=== PATIENT | male | born 1980 | race Caucasian/White ===

== ENCOUNTER 2017-05-15 15:37 | Emergency (ER) | payer BC ==
[2017-05-15] MEDS ORDERED: chlordiazePOXIDE 25 MG Cap PO ONE (16:46)
--- NOTE | 2017-05-15 16:53 | EDM.PDOCBH ---
ED HPI GENERAL MEDICAL PROBLEM - General Chief Complaint: Drug or Alcohol Abuse Stated Complaint: DETOX Time Seen by Provider: 05/15/17 16:23 Source of Information: Reports: Patient History Limitations: Reports: No Limitations - History of Present Illness INITIAL COMMENTS - FREE TEXT/NARRATIVE: Patient was evaluated by Everardo Gonzales earlier this morning for alcohol detox. Patient is feeling shaky and anxious. He can't sleep at night. I did speak to Everardo Gonzales personally and would like the patient evaluated in the ED to be prescribed something for the alcohol withdrawal symptoms and also help him sleep at night. Patient is a long-time alcoholic and has undergone alcohol treatment on 3 different occasions. States as of recent he drinks a few beers couple times a week but on the weekends he's been binge drinking. Largely in part because the alcohol use during the week was affecting his employment. Currently patient complains of some mild anxiety. Last consumed alcohol Monday night. Denies seizures with detox or hallucinations. Smokes 1.5 packs per day. Denies recreational drug use. He has no additional past medical history and currently taking no medications. - Related Data Allergies Allergy/AdvReac Type Severity Reaction Status Date / Time No Known Allergies Allergy Verified 05/15/17 15:45 Home Meds: Home Meds . [No Known Home Meds] 05/15/17 [History] Past Medical History - Past Health History Medical/Surgical History: Denies Medical/Surgical History Social & Family History - Tobacco Use Smoking Status *Q: Current Every Day Smoker Years of Tobacco use: 17 Packs/Tins Daily: 1.5 - Recreational Drug Use Recreational Drug Use: Yes Drug Use in Last 12 Months: Yes Recreational Drug Type: Reports: Cocaine, Marijuana/Hashish ED ROS GENERAL - Review of Systems Review Of Systems: ROS reveals no pertinent complaints other than HPI. Constitutional: Reports: No Symptoms HEENT: Reports: No Symptoms Respiratory: Reports: No Symptoms Cardiovascular: Reports: No Symptoms Neurological: Reports: Other (anxious) Psychiatric: Reports: Cravings (alcohol). Denies: Depression, Hallucinations, Homicidal Ideation, Suicidal Ideation ED EXAM, BEHAVIORAL HEALTH - Physical Exam Exam: See Below Exam Limited By: No Limitations General Appearance: Alert, WD/WN, Anxious Eye Exam: Bilateral Eye: EOMI, PERRL Ears: Hearing Grossly Normal Nose: Normal Inspection Throat/Mouth: Normal Inspection, Normal Oropharynx, Normal Voice, No Airway Compromise Neck: Normal Inspection, Supple Respiratory/Chest: No Respiratory Distress, Lungs Clear, Normal Breath Sounds, No Accessory Muscle Use Cardiovascular: Normal Peripheral Pulses, Regular Rate, Rhythm GI/Abdominal: Normal Bowel Sounds, Soft, Non-Tender, No Organomegaly, No Distention Extremities: Normal Inspection Neurological: Alert, Normal Mood/Affect, CN II-XII Intact, Normal Cognition, No Motor/Sensory Deficits, Oriented x 3 Psychiatric: Alert, Normal Affect, Oriented Skin Exam: Warm, Dry, Intact, Normal color COURSE, BEHAVIORAL HEALTH COMP - Course Vital Signs: Last Vital Signs Temp 98.5 F 05/15/17 15:45 Pulse 81 05/15/17 15:45 Resp 16 05/15/17 15:45 BP 147/110 H 05/15/17 15:45 Pulse Ox 99 05/15/17 15:45 Orders, Labs, Meds: Medications Discontinued Medications Generic Name Dose Route Start Last Admin Trade Name Freq PRN Reason Stop Dose Admin Chlordiazepoxide HCl 25 mg 05/15/17 16:46 05/15/17 17:03 Librium PO 05/15/17 16:47 25 mg ONETIME ONE Administration Re-Assessment/Re-Exam: I have provid prescription for Inderal, Librium, and also trazodone. Patient will establish care with a provider over at [facility] in [place] with plans to make an appt for his week or next week. He will be seeing Everardo Gonzales for alcohol treatment. Departure - Departure Time of Disposition: 16:50 Disposition: Home, Self-Care 01 Condition: Good Clinical Impression: Alcohol abuse Alcohol withdrawal syndrome Qualifiers: Complication of substance-induced condition: uncomplicated Qualified Code(s): F10.230 - Alcohol dependence with withdrawal, uncomplicated - Discharge Information Instructions: Alcohol Use Disorder, Alcohol Abuse and Nutrition Referrals: PCP,None [Primary Care Provider] - Additional Instructions: As discussed spoke with Everardo Gonzales. Will be you on Inderal, Librium, and also trazodone. Take the medications as prescribed. Do not take with alcohol or other recreational drugs. Do not drive while taking the Librium. Continue to see Everardo Gonzales for alcohol treatment. Establish care with a primary care provider over at [facility] and [place] this week or next week. Return to the ED if you develop any new or worsening symptoms.
== END 2017-05-15 17:05 | disposition home or self-care (01) ==
LOC: JD.ED 15:37
DX: F10.230 Alcohol dependence with withdrawal, uncomplicated (principal); F17.210 Nicotine dependence, cigarettes, uncomplicated
CPT/HCPCS: 99285; A9270; 99283

== ENCOUNTER 2019-04-03 09:08 | Emergency (ER) | payer BC ==
--- NOTE | 2019-04-03 09:30 | EDM.PDOC ---
ED HPI GENERAL MEDICAL PROBLEM - General Chief Complaint: Head Injury Stated Complaint: HEAD INJURY Time Seen by Provider: 04/03/19 09:15 Source of Information: Reports: Patient History Limitations: Reports: No Limitations - History of Present Illness INITIAL COMMENTS - FREE TEXT/NARRATIVE: Patient is a 38-year-old male who presents with complaints of headache and dizziness after head injury on Monday. Patient states that he is a heavy drinker and was drinking on Monday night. He apparently fell down the stairs and lost consciousness "for a couple hours ". He states when he drinks he normally does not lose consciousness and this was not normal for him. He states he woke up after this and went to the bathroom and vomited and then fell again and hit his head again. Since that time he has been experiencing headache and dizziness. He denies any vision changes, light sensitivity, or vomiting since that evening. He has not consumed alcohol since that day. He has been taking Tylenol as needed for his headache. Headache Pain Score (Numeric/FACES): 4 - Related Data Allergies Allergy/AdvReac Type Severity Reaction Status Date / Time No Known Allergies Allergy Verified 04/03/19 09:18 Home Meds: Home Meds . [No Known Home Meds] 05/15/17 [History] Past Medical History - Past Health History Medical/Surgical History: Denies Medical/Surgical History Cardiovascular History: Reports: Hypertension Respiratory History: Reports: None Gastrointestinal History: Reports: None Genitourinary History: Reports: None Musculoskeletal History: Reports: Fracture Neurological History: Reports: None Psychiatric History: Reports: Addiction, Anxiety Endocrine/Metabolic History: Reports: None Hematologic History: Reports: None Immunologic History: Reports: None Oncologic (Cancer) History: Reports: None Dermatologic History: Reports: None - Infectious Disease History Infectious Disease History: Reports: None - Past Surgical History HEENT Surgical History: Reports: Oral Surgery Social & Family History - Tobacco Use Smoking Status *Q: Current Every Day Smoker Years of Tobacco use: 20 Packs/Tins Daily: 1 - Caffeine Use Caffeine Use: Reports: Coffee, Energy Drinks - Recreational Drug Use Recreational Drug Use: No ED ROS GENERAL - Review of Systems Review Of Systems: Comprehensive ROS is negative, except as noted in HPI. ED EXAM, HEAD INJURY - Physical Exam Exam: See Below Exam Limited By: No Limitations General Appearance: Alert, WD/WN, No Apparent Distress Head: Scalp Hematoma (small to left occipital), Facial Abrasions (rt upper forehead) Eyes: Bilateral Eye: PERRL Ears: Normal External Exam, Normal TMs Respiratory: No Respiratory Distress, Lungs Clear, Normal Breath Sounds, No Accessory Muscle Use, Chest Non-Tender Cardiovascular: Normal Peripheral Pulses, Regular Rate, Rhythm, No Murmur Neurologic: personal consultant II-XII nml As Tested, No Motor/Sensory Deficits, Alert, Normal Mood/Affect, Oriented x 3 - Breana Coma Score Best Eye Response (Rapidan): (4) Open Spontaneously Best Verbal Response ([place]idan): (5) Oriented Best Motor Response ([place]): (6) Obeys Commands Course - Vital Signs Last Recorded V/S: Last Vital Signs Temp 97.6 F 04/03/19 09:14 Pulse 88 04/03/19 09:14 Resp 16 04/03/19 09:14 BP 162/127 H 04/03/19 09:14 Pulse Ox 100 04/03/19 09:14 - Orders/Labs/Meds Meds: Medications Discontinued Medications Generic Name Dose Route Start Last Admin Trade Name Tomasz PRN Reason Stop Dose Admin Ketorolac Tromethamine 60 mg 04/03/19 10:12 04/03/19 10:16 Toradol IM 04/03/19 10:13 60 mg ONETIME ONE Administration Ketorolac Tromethamine Confirm 04/03/19 10:13 Toradol Administered 04/03/19 10:14 Dose 60 mg .ROUTE .STK-MED ONE - Re-Assessments/Exams Free Text/Narrative Re-Assessment/Exam: 04/03/19 10:[address] was normal. He is most likely suffering from a concussion. I will give him 60 mg of IM Toradol at this time and then discharged home with symptomatic care. Discharge instructions as noted. Departure - Departure Time of Disposition: 10:14 Disposition: Home, Self-Care 01 Condition: Fair Clinical Impression: Concussion injury of brain - Discharge Information *PRESCRIPTION DRUG MONITORING PROGRAM REVIEWED*: No *COPY OF PRESCRIPTION DRUG MONITORING REPORT IN PATIENT FROYLAN: No Instructions: Concussion, Adult Referrals: PCP,None [Primary Care Provider] - Forms: ED Department Discharge Additional Instructions: You were seen in the emergency department with headaches and dizziness after having a head injury on Monday. A CT was done of your head and that was normal. It is most likely that you are suffering from a concussion. Treatment of a concussion his brain rest and avoiding reinjury of the brain. Avoid factors that you find make your symptoms worse, such as bright lights, computer a TV screens, or cell phones. Rest as much as possible and ensure adequate fluid intake. I recommend that you avoid alcohol consumption. Your symptoms should begin to gradually improve over the course of the next 10 days. As we discussed, the duration of recovery is different for every person. If you should experience any new or worsening symptoms of concern, please do not hesitate to return to the emergency department. Sepsis Event Note - Evaluation Sepsis Screening Result: No Definite Risk - Focused Exam Vital Signs: Vital Signs Temp Pulse Resp BP Pulse Ox 04/03/19 09:14 97.6 F 88 16 162/127 H 100 Date Exam was Performed: 04/03/19 Time Exam was Performed: 10:53
--- NOTE | 2019-04-03 10:04 | CT ---
Head CT Technique: Multiple axial sections through the brain were obtained. Intravenous contrast was not utilized. Comparison: No prior intracranial imaging is available. Findings: Ventricles along with basal cisterns and sulci over the convexities are within normal limits for the patient's age. No abnormal parenchymal densities are seen. No evidence of intracranial hemorrhage. No midline shift or mass effect is seen. Bone window settings were reviewed. Visualized mastoid sinuses and paranasal sinuses show nothing acute. No acute calvarial abnormality is appreciated. Impression: 1. Nothing acute is appreciated on noncontrast head CT exam. Diagnostic code #1 This report was dictated in Mountain Standard Time
[2019-04-03] MEDS ORDERED: Ketorolac 60 MG/2 ML SDV IM ONE (10:12)
[2019-04-03] MEDS ORDERED: Ketorolac 60 MG/2 ML SDV ONE (10:13)
== END 2019-04-03 10:20 | disposition home or self-care (01) ==
LOC: JD.ED 09:08
DX: S06.0X0A Concussion without loss of consciousness, initial encounter (principal); S00.03XA Contusion of scalp, initial encounter; S00.83XA Contusion of other part of head, initial encounter; F17.210 Nicotine dependence, cigarettes, uncomplicated; Z98.890 Other specified postprocedural states; W10.9XXA Fall (on) (from) unspecified stairs and steps, initial encounter
CPT/HCPCS: 70450; 96372; 99284; J1885

== ENCOUNTER 2020-06-16 11:47 | Emergency (ER) | payer BC ==
[2020-06-16] MEDS ORDERED: Sodium Chloride 0.9% 1,000 ML IV ONE (12:30)
[2020-06-16] MEDS ORDERED: Sodium Chloride 0.9% 10 ML Syringe FLUSH PRN (12:30)
[2020-06-16] MEDS ORDERED: Folic Acid 1 MG Tab PO ONE (12:30)
--- NOTE | 2020-06-16 13:11 | EDM.PDOC ---
ED HPI GENERAL MEDICAL PROBLEM - General Chief Complaint: Drug or Alcohol Abuse Stated Complaint: ALCOHOL WITHDRAWAL Time Seen by Provider: 06/16/20 12:13 Source of Information: Reports: Patient, RN Notes Reviewed History Limitations: Reports: No Limitations - History of Present Illness INITIAL COMMENTS - FREE TEXT/NARRATIVE: Patient is a 40-year-old male who presents to the ED for the evaluation of his alcohol abuse. The patient states that he drinks about 1/2 L to a full liter of vodka on a daily basis, he has been doing this for many years. He states that he has been trying to cut back on the amount of alcohol he is taking in. He states his last alcohol intake was on Monday. He states that today he feels pretty shaky, and feels like his heart is pounding out of his chest. He is having no chest pain, no shortness of breath, no fevers or chills, no nausea/vomiting/diarrhea. Patient has no visible baseline tremors noted, but when he holds his hands out, there is a fine tremor that can be felt in his fingertips. He is not hearing things that are not there or not seeing things that are not there. He did become concerned yesterday, he was pretty dizzy. He has been drinking water to try to keep himself hydrated. He notes that the dizziness is not happened to him before. He denies any history of alcoholic withdrawal seizures. He has had multiple occasions where he has had alcohol detox in the outpatient setting and inpatient settings. When I asked the patient if he was desiring to quit alcohol today, he states no, he was concerned about the possibility of having alcohol withdrawal seizures and this is what brings him to the ER. Patient notes that when he feels he is getting shaky, he again drinks alcohol as a coping mechanism. He also notes that he has talked to this family and parents about his alcohol issues, and he states that he has been to AA as well. - Related Data Allergies Allergy/AdvReac Type Severity Reaction Status Date / Time No Known Allergies Allergy Verified 06/16/20 12:12 Home Meds: Home Meds LORazepam [Ativan] 1 mg PO TID PRN #6 tab 06/16/20 [Rx] Past Medical History Cardiovascular History: Reports: Hypertension Musculoskeletal History: Reports: Fracture Psychiatric History: Reports: Addiction, Anxiety - Infectious Disease History Infectious Disease History: Reports: Chicken Pox - Past Surgical History HEENT Surgical History: Reports: Oral Surgery Social & Family History - Tobacco Use Tobacco Use Status *Q: Current Every Day Tobacco User Tobacco Use Within Last Twelve Months: Cigarettes Years of Tobacco use: 20 Packs/Tins Daily: 2 Smoking Cessation Information Provided To Patient: Patient Refused - Caffeine Use Caffeine Use: Reports: Coffee, Energy Drinks, Soda, Tea - Alcohol Use Alcohol Use History: Yes Days Per Week of Alcohol Use: 7 Days Per Week of Alcohol Use Comment: 1/2-1L vodka daily, states he has been trying to cut back Date of Last Drink: 06/14/20 Alcohol Use in Last Twelve Months: Yes Alcohol Use Frequency: Daily - Recreational Drug Use Recreational Drug Use: Yes Drug Use in Last 12 Months: Yes Recreational Drug Type: Reports: Cocaine, Marijuana/Hashish Other Recreational Drug Type: one time in past year cocaine, marijuana in [facility] ED ROS GENERAL - Review of Systems Review Of Systems: Comprehensive ROS is negative, except as noted in HPI. ED EXAM, GENERAL - Physical Exam Exam: See Below Exam Limited By: No Limitations General Appearance: Alert, WD/WN, No Apparent Distress Eye Exam: Bilateral Eye: EOMI, Normal Inspection, PERRL Respiratory/Chest: No Respiratory Distress, Lungs Clear, Normal Breath Sounds, No Accessory Muscle Use, Chest Non-Tender Cardiovascular: Normal Peripheral Pulses, Regular Rate, Rhythm, No Edema Extremities: Normal Inspection, Normal Capillary Refill Neurological: Alert, Oriented, Normal Cognition, No Motor/Sensory Deficits Psychiatric: Normal Affect, Normal Mood Skin Exam: Warm, Dry, Intact, Normal Color, No Rash Course - Vital Signs Last Recorded V/S: Last Vital Signs Temp 98.2 F 06/16/20 12:07 Pulse 92 06/16/20 12:07 Resp 18 06/16/20 12:07 BP 169/115 H 06/16/20 12:07 Pulse Ox 99 06/16/20 12:07 - Orders/Labs/Meds Orders: Active Orders 24 hr Category Date Time Status Peripheral IV Care [RC] . DIRECTED Care 06/16/20 12:30 Ordered Sodium Chloride 0.9% [Normal Saline] 1,000 ml Med 06/16/20 12:30 Ordered IV ONETIME Sodium Chloride 0.9% [Saline Flush] Med 06/16/20 12:30 Ordered 10 ml FLUSH ASDIRECTED PRN Peripheral IV Insertion Adult [OM.PC] Stat Oth 06/16/20 12:30 Ordered Medication Orders Sodium Chloride (Normal Saline) 1,000 mls @ 999 mls/hr IV ONETIME ONE Stop: 06/16/20 13:30 Last Admin: 06/16/20 12:40 Dose: 999 mls/hr Documented by: MARCELLA Sodium Chloride (Sodium Chloride 0.9% 10 Ml Syringe) 10 ml FLUSH ASDIRECTED PRN PRN Reason: Keep Vein Open Last Admin: 06/16/20 13:15 Dose: 10 ml Documented by: Labs: Laboratory Tests 06/16/20 06/16/20 06/16/20 Range/Units 12:20 12:20 12:20 WBC 9.02 (4.23-9.07) K/mm3 RBC 4.37 L (4.63-6.08) M/mm3 Hgb 15.1 (13.7-17.5) gm/dl Hct 44.2 (40.1-51.0) % MCV 101.1 H (79.0-92.2) fl MCH 34.6 H (25.7-32.2) pg MCHC 34.2 (32.2-35.5) g/dl RDW Std Deviation 45.8 H (35.1-43.9) fL Plt Count 136 L (163-337) K/mm3 MPV 11.8 (9.4-12.3) fl Neut % (Auto) 77.5 H (34.0-67.9) % Lymph % (Auto) 14.5 L (21.8-53.1) % [place] % (Auto) 6.4 (5.3-12.2) % Eos % (Auto) 0.7 L (0.8-7.0) Baso % (Auto) 0.8 (0.1-1.2) % Neut # (Auto) 6.99 H (1.78-5.38) K/mm3 Lymph # (Auto) 1.31 L (1.32-3.57) K/mm3 [place] # (Auto) 0.58 (0.30-0.82) K/mm3 Eos # (Auto) 0.06 (0.04-0.54) K/mm3 Baso # (Auto) 0.07 (0.01-0.08) K/mm3 PT 10.9 (9.7-12.0) SECONDS INR 1.02 Sodium 138 (136-145) mEq/L Potassium 3.8 (3.5-5.1) mEq/L Chloride 98 (98-107) mEq/L Carbon Dioxide 25 (21-32) mEq/L Anion Gap 18.8 H (5-15) BUN 10 (7-18) mg/dL Creatinine 0.9 (0.7-1.3) mg/dL Est Cr Clr Drug Dosing 113.78 mL/min Estimated GFR (MDRD) > 60 (>60) mL/min BUN/Creatinine Ratio 11.1 L (14-18) Glucose 93 (74-106) mg/dL Calcium 9.8 (8.5-10.1) mg/dL Magnesium 1.8 (1.8-2.4) mg/dl Total Bilirubin 1.2 H (0.2-1.0) mg/dL AST 35 (15-37) U/L ALT 48 (16-63) U/L Alkaline Phosphatase 95 (46-116) U/L Total Protein 8.1 (6.4-8.2) g/dl Albumin 4.4 (3.4-5.0) g/dl Globulin 3.7 gm/dL Albumin/Globulin Ratio 1.2 (1-2) Ethyl Alcohol 0.00 (0.00) gm% Meds: Medications Generic Name Dose Route Start Last Admin Trade Name Freq PRN Reason Stop Dose Admin Sodium Chloride 1,000 mls @ 999 mls/hr 06/16/20 12:30 06/16/20 12:40 Normal Saline IV 06/16/20 13:30 999 mls/hr ONETIME ONE Administration Sodium Chloride 10 ml 06/16/20 12:30 06/16/20 13:15 Sodium Chloride 0.9% 10 Ml Syringe FLUSH 10 ml ASDIRECTED PRN Administration Keep Vein Open Discontinued Medications Generic Name Dose Route Start Last Admin Trade Name Freq PRN Reason Stop Dose Admin Folic Acid 1 mg 06/16/20 12:30 06/16/20 12:52 Folic Acid 1 Mg Tab PO 06/16/20 12:31 1 mg ONETIME ONE Administration - Re-Assessments/Exams Free Text/Narrative Re-Assessment/Exam: 06/16/20 13:12 Patient presents to the ED for his alcohol abuse. I did talk with the patient, regarding his wishes for today's visit. He states that he was concerned about the possibility of alcohol withdrawal seizures. Nursing staff did put his CIWA scale at around 1. They state that he is likely low risk, and I would agree. At this point he expresses no desire to quit drinking, he is trying to cut back by himself. He did mention the possibility of withdrawal medications. I did discuss his case with Dr. Bartlett, and he states that his most at risk time for seizures would be tomorrow. Dr. Bartlett thinks it would be fine to send the patient home with just a few tablets of Ativan for if the patient feels anxious/shaky. I was able to review all of his labs, and everything is fairly unremarkable, patient's blood alcohol level is 0. There are no other electrolyte abnormalities made apparent. I will go ahead and discharge him home with a few tablets of Ativan with strict instructions on how to use these, I will also give him the number for [facility] for alcohol withdrawal management/counseling if he should choose to do so. Departure - Departure Time of Disposition: 13:18 Disposition: Home, Self-Care 01 Condition: Good Clinical Impression: Alcohol abuse - Discharge Information *PRESCRIPTION DRUG MONITORING PROGRAM REVIEWED*: Yes *COPY OF PRESCRIPTION DRUG MONITORING REPORT IN PATIENT FROYLAN: No Prescriptions: LORazepam [Ativan] 1 mg PO TID PRN #6 tab PRN Reason: Anxiety Instructions: Alcohol Abuse and Dependence Information, Adult, Finding Treatment for Addiction Referrals: Mariza Block PA-C [Primary Care Provider] - Forms: ED Department Discharge Additional Instructions: You were seen in this ER for your alcohol abuse. Laboratory evaluation done at today's visit demonstrates no focal abnormalities, all of your electrolytes are within normal limits. Your evaluation in the ER done today would put you at the highest risk for any sort of alcohol withdrawal type issues, either today or tomorrow. You were not interested in outpatient treatment at this time however I have provided you a few tablets of Ativan to use, for your baseline shakiness, or if you feel anxious. You can take 1 tablet up to 3 times a day as needed for the next day or 2. Do not drink alcohol while using this medication, do not drive while using this medication. This medication was electronically sent to the [place] pharmacy located in the [employer] [facility]. [facility] number is [phone], emergency crisis number is [phone]. Recommend you call them, when you are ready to stop drinking alcohol, so they can point to in the right direction of services to be provided to you to help stop drinking. Please increase your oral fluid hydration, to include fluids like Powerade/Gatorade, over the next few days as well, try to avoid straight water if possible, as the Gatorade and Powerade have some electrolytes in them to keep you hydrated. Do your best to stay away from alcohol over the next few days, and that should put you at the least risk for any sort of alcohol withdrawal seizures. Please return to the ER at any time if symptoms change or worsen. Sepsis Event Note (ED) - Evaluation Sepsis Screening Result: No Definite Risk - Focused Exam Vital Signs: Vital Signs Temp Pulse Resp BP Pulse Ox 06/16/20 12:07 98.2 F 92 18 169/115 H 99 - My Orders Last 24 Hours: My Active Orders 06/16/20 12:30 Peripheral IV Care [RC] . DIRECTED Sodium Chloride 0.9% [Normal Saline] 1,000 ml IV ONETIME Sodium Chloride 0.9% [Saline Flush] 10 ml FLUSH ASDIRECTED PRN Peripheral IV Insertion Adult [OM.PC] Stat - Assessment/Plan Last 24 Hours: My Active Orders 06/16/20 12:30 Peripheral IV Care [RC] . DIRECTED Sodium Chloride 0.9% [Normal Saline] 1,000 ml IV ONETIME Sodium Chloride 0.9% [Saline Flush] 10 ml FLUSH ASDIRECTED PRN Peripheral IV Insertion Adult [OM.PC] Stat
== END 2020-06-16 13:56 | disposition home or self-care (01) ==
LOC: JD.ED 11:47
DX: F10.10 Alcohol abuse, uncomplicated (principal); I10 Essential (primary) hypertension; Z72.0 Tobacco use
CPT/HCPCS: 36415; 80053; 80307; 83735; 85025; 85610; 99284; A9270; J7030; 99283

== ENCOUNTER 2021-11-29 17:03 | Emergency (ER) | payer BC | END 2021-11-29 18:09 | disposition home or self-care (01) | LOC: JD.ED 17:03 | DX: F10.129 Alcohol abuse with intoxication, unspecified (principal); I10 Essential (primary) hypertension; F17.210 Nicotine dependence, cigarettes, uncomplicated | CPT/HCPCS: 99282; 99284 ==

== ENCOUNTER 2022-03-09 16:48 | Emergency (ER) | payer BC | END 2022-03-09 21:00 | disposition home or self-care (01) | LOC: JD.ED 16:48 | DX: F10.229 Alcohol dependence with intoxication, unspecified (principal); F32.A Depression, unspecified; F17.210 Nicotine dependence, cigarettes, uncomplicated | CPT/HCPCS: 99283 ==